=== PATIENT | male | born 1955 | race Caucasian/White ===

== ENCOUNTER 2016-06-16 06:23 | Day surgery (SDC) | payer BC ==
[2016-06-15 15:05] LABS: HEMOGLOBIN 14.7 g/dL (13.7-18.0)
[2016-06-15 15:18] LABS: ASPARTATE AMINO TRANSFERASE 17 U/L (15-37); BLOOD UREA NITROGEN 20 mg/dL (7-18)
[~2016-06-16] VITALS: Ht 188 cm; Wt 102.2 kg
[~2016-06-16 06:23] MED LIST: ATOR40TA78 PO; CARV-39 PO; DABI150C PO; DIGO250T PO; FURO20TA3 PO; LOSA25TA2 PO; SPIR25TA PO
[2016-06-16] MEDS ORDERED: SODIUM CHLORIDE 0.9% 1,000 ML IV SCH (06:39)
[2016-06-16] MEDS ORDERED: AMIO200T42 PO (06:58)
[2016-06-16] MEDS ORDERED: ATOR40TA78 PO (07:03)
[2016-06-16] MEDS ORDERED: CARV25TA12 PO (07:03)
[2016-06-16] MEDS ORDERED: LOSA25TA5 PO (07:03)
[2016-06-16] MEDS ORDERED: SPIR25TA3 PO (07:03)
[2016-06-16] MEDS ORDERED: DABI150C PO (07:03)
[2016-06-16] MEDS ORDERED: MIDAZOLAM 1 MG/ML, 5ML ONE (08:19)
[2016-06-16] MEDS ORDERED: LIDOCAINE 2%, 20ML ONE (08:19)
[2016-06-16] MEDS ORDERED: ISOPROTERENOL 0.2MG/ML, 5ML ONE (08:19)
[2016-06-16] MEDS ORDERED: FENTANYL PF 100 MCG/2ML ONE (08:19)
== END 2016-06-16 10:30 ==
LOC: CACL 06:23
PROVIDERS: ATTEND Internal Medicine Cardiovascular Disease
DX: I48.92 Unspecified atrial flutter (principal); I10 Essential (primary) hypertension
CPT/HCPCS: 36415; 71020; 80053; 80061; 84436; 84481; 85025; 85610; 85730; 93005; 93613; 93621; 93653; C1730; C1731; C1894; C2630; J2250; J3010; J3490

== ENCOUNTER → 2016-07-16 | Outpatient (CLI) | payer BC ==
[~2016-07-16] MED LIST changes: +AMIO200T42 PO; +CARV25TA12 PO; +LOSA25TA5 PO; +SPIR25TA3 PO
== END | disposition home or self-care (01) ==
LOC: CVU 15:14
PROVIDERS: ATTEND Internal Medicine Cardiovascular Disease
DX: I08.1 Rheumatic disorders of both mitral and tricuspid valves (principal); I37.1 Nonrheumatic pulmonary valve insufficiency; I48.91 Unspecified atrial fibrillation
CPT/HCPCS: 93306

== ENCOUNTER → 2016-11-17 | Day surgery (SDC) | payer BC ==
[~2016-11-17] MED LIST changes: +PROPOFOL 10 MG/ML, 20ML ONE
== END ==
LOC: CACL 06:05
PROVIDERS: ATTEND Internal Medicine Cardiovascular Disease
DX: I48.92 Unspecified atrial flutter (principal); I48.0 Paroxysmal atrial fibrillation; I10 Essential (primary) hypertension; I42.9 Cardiomyopathy, unspecified; E78.2 Mixed hyperlipidemia; Z79.01 Long term (current) use of anticoagulants
CPT/HCPCS: 92960; 93005; J2704

== ENCOUNTER 2017-06-04 06:04 | Day surgery (SDC) | payer BC ==
[~2017-06-04 06:04] MED LIST changes: -PROPOFOL 10 MG/ML, 20ML ONE
== END 2017-06-04 08:30 ==
LOC: CACL 06:04
PROVIDERS: ATTEND Internal Medicine Cardiovascular Disease
DX: I48.91 Unspecified atrial fibrillation (principal); Z53.9 Procedure and treatment not carried out, unspecified reason; I10 Essential (primary) hypertension; E78.2 Mixed hyperlipidemia; Z79.01 Long term (current) use of anticoagulants; Z79.899 Other long term (current) drug therapy; I48.92 Unspecified atrial flutter
CPT/HCPCS: 93005

== ENCOUNTER → 2017-09-17 | Outpatient (CLI) | payer BC | END | disposition home or self-care (01) | LOC: CFH 12:19 | PROVIDERS: ATTEND Internal Medicine Cardiovascular Disease | DX: I35.8 Other nonrheumatic aortic valve disorders (principal); I10 Essential (primary) hypertension; I42.9 Cardiomyopathy, unspecified; E78.2 Mixed hyperlipidemia | CPT/HCPCS: 71046; 93306 ==

== ENCOUNTER 2018-10-14 15:14 | Outpatient (CLI) | payer BC ==
[~2018-10-14 15:14] MED LIST changes: +LOSA25TA25 PO; -LOSA25TA5 PO; -SPIR25TA3 PO; +SPIR25TA5 PO
== END 2018-10-14 23:59 | disposition home or self-care (01) ==
LOC: RAD 15:14
PROVIDERS: ATTEND Physician Assistant Medical
DX: R07.9 Chest pain, unspecified (principal); E78.2 Mixed hyperlipidemia; I42.9 Cardiomyopathy, unspecified; I10 Essential (primary) hypertension; I48.2 Chronic atrial fibrillation; I48.92 Unspecified atrial flutter; Z79.01 Long term (current) use of anticoagulants
CPT/HCPCS: 71046

== ENCOUNTER → 2020-02-21 | Outpatient (CLI) | payer MEDICARE, OTHER ==
[~2020-02-21] MED LIST changes: -DIGO250T PO; +DIGO250T3 PO; +REGADENOSON 0.4 MG/5 ML SYRINGE ONE
== END | disposition home or self-care (01) ==
LOC: CFH 06:44
PROVIDERS: ATTEND Internal Medicine Cardiovascular Disease
DX: I35.8 Other nonrheumatic aortic valve disorders (principal); I10 Essential (primary) hypertension; I42.9 Cardiomyopathy, unspecified; I48.92 Unspecified atrial flutter
CPT/HCPCS: 78452; 93017; 93306; 93356; A9502; J2785

== ENCOUNTER → 2020-08-26 | Outpatient (CLI) | payer MEDICARE, OTHER ==
[~2020-08-26] MED LIST changes: -REGADENOSON 0.4 MG/5 ML SYRINGE ONE
== END | disposition home or self-care (01) ==
LOC: CFH 14:53
PROVIDERS: ATTEND Internal Medicine Cardiovascular Disease
DX: Z51.81 Encounter for therapeutic drug level monitoring (principal); E78.2 Mixed hyperlipidemia; I10 Essential (primary) hypertension; I42.9 Cardiomyopathy, unspecified; I48.0 Paroxysmal atrial fibrillation; I48.92 Unspecified atrial flutter; Z79.01 Long term (current) use of anticoagulants
CPT/HCPCS: 71046